=== PATIENT | male | born 1985 | race African-American/Black ===

== ENCOUNTER 2016-09-21 11:55 | Emergency (ER) | payer OTHER ==
--- NOTE | 2016-09-21 13:23 | EDDOCDS ---
Nurse's Notes [facility] Name: Raheem Forrest Age: 30 yrs Sex: Male : 1985 Arrival Date: 09/21/2016 Time: 11:55 Bed PR Private MD: ILJulia BHATIA Diagnosis: Pneumonia, unspecified organism-BILATERAL;Cough Presentation: 09/21 12:05 Presenting complaint: Patient states: cough for 1 week. becoming dizzy with cough. saw [facility] medic on post and was given mucinex. itchy throat and fever flashes. Adult Sepsis Screening: The patient does not have new or worsening altered mentation. Patient's respiratory rate is less than 22. Systolic blood pressure is greater than 100. Patient has a qSOFA score of 0- Negative Sepsis Screen. Suicide/Homicide risk assessment- the patient denies having any suicidal and/or homicidal ideations and does not present with any other emotional, behavioral or mental health complaints. 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 Transition of care: patient was not received from another setting of care. 12:05 Acuity: TORRES Level 4 [facility] 12:05 Method Of Arrival: Walkin/Carried/Asstd [facility] Triage Assessment: 12:09 General: Appears in no apparent distress, Behavior is appropriate for age, cooperative. srm Pain: Pain currently is 10 out of 10 on a pain scale. At worst was 10 out of 10 on a pain scale. HIV screening NA for this visit Offered previously. Historical: - Allergies: Malaria medication (interferes with G6PD deficiency); SULFA (SULFONAMIDES) (interferes with his g6PD deficiency); - Home Meds: 1. Lorazepam Unknown Oral once daily 2. mirazepine daily 3. Mucinex 600 mg oral Ta12 every 12 hours 4. Tylenol Unknown Oral every 4-6 hours prn 5. trazodone 100 mg oral tab 1 tab daily (Last dose: Unknown) 6. valsartan 80 mg oral tab Unknown hasnt started med yet 7. prazosin 5 mg Oral cap 1 cap daily (Last dose: Unknown) 8. escitalopram oxalate 20 mg oral tab 1 tab once daily 9. Abilify 15 mg Oral tab 1 tab once daily 10. Celebrex 100 mg oral cap 1 cap once daily 11. sumatriptan succinate 50 mg oral tab 1 tab takes once per week 12. tamsulosin 0.4 mg oral cp24 1 cap once daily does not take - PMHx: anal fissure; Arthritis; chronic left knee pain; g6pd deficiency; sleep issues; Hypertension; - PSHx: Colonoscopy; - Social history: Smoking status: Patient states was never smoker of tobacco. No barriers to communication noted, The patient speaks fluent Latvian, Speaks appropriately for age. - Family history: Not pertinent. - : The pt / caregiver states he / she is not on anticoagulants. Home medication list is obtained from the patient. - Exposure Risk Screening:: None identified. Screenin:20 Screening information is obtained from the patient. Fall risk: No risks identified. jf3 Assistance ADL's: requires no assistance with activities of daily living. Abuse/DV Screen: The patient / caregiver reports he/she is: not in a situation that causes fear, pain or injury. Nutritional screening: No deficits noted. Advance Directives: Currently, there is no health care proxy. home support is adequate. Assessment: 13:20 General: Appears ill. Pain: Location: throat Pain currently is 10 out of 10 on a pain jf3 scale. Neurological: Level of Consciousness is awake, alert, Oriented to person, place, time. Cardiovascular: Capillary refill < 3 seconds Heart tones S1 S2 present Chest pain is denied. Respiratory: Airway is patent Respiratory effort is even, unlabored, Respiratory pattern is regular, symmetrical, Breath sounds are clear bilaterally. Derm: Skin is normal. Vital Signs: 11:57 BP 147 / 87; Pulse 105; Resp 18; Temp 97.7(O); Pulse Ox 97% on R/A; Weight 103.42 kg ct3 (R); Height 68 in. (172.72 cm) (R); Pain 0/10; 13:18 BP 139 / 97; Pulse 98; Resp 18; Temp 97.7(T); Pulse Ox 99% on R/A; Pain 10/10; jb5 11:57 Body Mass Index 34.67 (103.42 kg, 172.72 cm) ct3 13:18 throat pain jb5 Vitals: 11:57 Log In Time: September 21, 2016 at 11:55. ct3 ED Course: 11:56 Patient visited by Amber Centeno PCA. ct3 11:56 Patient moved to Waiting ct3 11:57 [facility], Julia Esteves is Private Physician. ct3 11:58 Patient moved to Pre RCE ct3 12:06 Triage Initiated srm 12:10 Patient moved to Triage 3 srm 12:27 [facility] dt[facility] 12:27 Tamar Valle MD is Attending Physician. dt4 12:27 Patient visited by Funmilayo Nobles PA-C. dt4 12:41 Patient moved to TR1 jb5 13:06 Patient moved to PR1 / 25 jb5 13:19 Patient visited by Vane Petty PCA. jb5 13:20 [facility] Payment Agreement was scanned into [employer] and attached to record. mm15 13:20 The patient / caregiver is instructed regarding the plan of care and ED course. jf3 13:20 No IV's were initiated during this patient's visit. No procedures done that require jf3 assistance. Order Results: There are currently no results for this order. Outcome: 13:04 Discharge ordered by Provider. dt4 13:22 Discharge Assessment: Patient awake, alert and oriented x 3. No cognitive and/or jf3 functional deficits noted. Patient verbalized understanding of disposition instructions. patient administered narcotics - no. The following High Risk Discharge criteria are identified: None. Discharged to home ambulatory. Condition: stable. Discharge instructions given to patient, Instructed on discharge instructions, follow up and referral plans. medication usage, Demonstrated understanding of instructions, medications, No special radiology studies were completed. Property :Personal belongings accompany Pt. 13:22 Patient left the ED. jf3 Signatures: Mimi Roa, RN RN [facility] Vane Petty PCA [place] [employer] jb5 Amber Centeno PCA [place] ct3 [place] mm15 Funmilayo Nobles PA-C PA-C dt4 Pool Tinajero,MAY RN jf3 Corrections: (The following items were deleted from the chart) 12:22 12:09 Home Meds: Trazodone Oral once daily; srm jf3 MTDD
--- NOTE | 2016-09-21 13:23 | EDDOCDS ---
Physician Documentation [facility] Name: Raheem Forrest Age: 30 yrs Sex: Male : 1985 Arrival Date: 09/21/2016 Time: 11:55 Bed PR Private MD: MDJulia BHATIA Disposition: 09/21/16 13:04 Discharged to Home/Self Care. Impression: Pneumonia, unspecified organism - BILATERAL, Cough. - Condition is Stable. - Discharge Instructions: Pneumonia, Adult, Cough, Adult. - Prescriptions for benzonatate 200 mg Oral Capsule - take 1 capsule by ORAL route 3 times per day As needed; 30 capsule. Levaquin 750 mg Oral Tablet - take 1 tablet by ORAL route once daily for 5 days; 5 tablet. - Medication Reconciliation, Local Pharmacy Hours form. - Follow up: Emergency Department; When: As needed; Reason: Worsening of conditions. Follow up: Private Physician; When: 2 - 3 days; Reason: Wound/Symptom Recheck, Recheck today's complaints, Continuance of care. - Problem is new. - Symptoms are unchanged. Historical: - Allergies: Malaria medication (interferes with G6PD deficiency); SULFA (SULFONAMIDES) (interferes with his g6PD deficiency); - Home Meds: 1. Lorazepam Unknown Oral once daily 2. mirazepine daily 3. Mucinex 600 mg oral Ta12 every 12 hours 4. Tylenol Unknown Oral every 4-6 hours prn 5. trazodone 100 mg oral tab 1 tab daily (Last dose: Unknown) 6. valsartan 80 mg oral tab Unknown hasnt started med yet 7. prazosin 5 mg Oral cap 1 cap daily (Last dose: Unknown) 8. escitalopram oxalate 20 mg oral tab 1 tab once daily 9. Abilify 15 mg Oral tab 1 tab once daily 10. Celebrex 100 mg oral cap 1 cap once daily 11. sumatriptan succinate 50 mg oral tab 1 tab takes once per week 12. tamsulosin 0.4 mg oral cp24 1 cap once daily does not take - PMHx: anal fissure; Arthritis; chronic left knee pain; g6pd deficiency; sleep issues; Hypertension; - PSHx: Colonoscopy; - Social history: Smoking status: Patient states was never smoker of tobacco. No barriers to communication noted, The patient speaks fluent Bhutanese, Speaks appropriately for age. - Family history: Not pertinent. - : The pt / caregiver states he / she is not on anticoagulants. Home medication list is obtained from the patient. - Exposure Risk Screening:: None identified. Vital Signs: 09/21 11:57 BP 147 / 87; Pulse 105; Resp 18; Temp 97.7(O); Pulse Ox 97% on R/A; Weight 103.42 kg / ct3 228 lbs (R); Height 68 in. (172.72 cm) (R); Pain 0/10; 13:18 BP 139 / 97; Pulse 98; Resp 18; Temp 97.7(T); Pulse Ox 99% on R/A; Pain 10/10; jb5 11:57 Body Mass Index 34.67 (103.42 kg, 172.72 cm) ct3 13:18 throat pain jb5 MDM: 12:42 Chest, 2 View (pa\E\lat) Ordered. EDMS 12:54 Financial registration complete. mm15 13:20 [facility] Payment Agreement was scanned into [employer] and attached to record. mm15 Signatures: Dispatcher [employer] EDMS Mimi Roa, RN RN srm [place] mm15 Funmilayo Nobles, PA-C PA-C dt4 Pool Tinajero,RN RN jf3 The chart was reviewed and I authenticate all verbal orders and agree with the evaluation and treatment provided.Corrections: (The following items were deleted from the chart) 12:22 12:09 Home Meds: Trazodone Oral once daily; srm jf3 Attachments: 13:20 [facility] Payment Agreement mm15 MTDD
--- NOTE | 2016-09-21 13:38 | REP ---
Chest x-ray: Two views. History: Cough. Findings: There is an area of infiltrate in the right perihilar region consistent with pneumonia. Some increased markings are suspected in the left perihilar region as well question bilateral infiltrates. Pleural angles are sharp. Cardiomediastinal silhouette is unremarkable. No bony abnormality is seen. Impression: Bilateral perihilar infiltrates right greater than left consistent with pneumonia. Signed by Peter Dorado MD 09/21/2016 01:44 P
--- NOTE | 2016-09-23 14:23 | EDDOCDS ---
Physician Documentation [facility] Name: Raheem Forrest Age: 30 yrs Sex: Male : 1985 Arrival Date: 09/21/2016 Time: 11:55 Bed PR Private MD: MEJulia BHATIA Disposition: 09/21/16 13:04 Discharged to Home/Self Care. Impression: Pneumonia, unspecified organism - BILATERAL, Cough. - Condition is Stable. - Discharge Instructions: Pneumonia, Adult, Cough, Adult. - Prescriptions for benzonatate 200 mg Oral Capsule - take 1 capsule by ORAL route 3 times per day As needed; 30 capsule. Levaquin 750 mg Oral Tablet - take 1 tablet by ORAL route once daily for 5 days; 5 tablet. - Medication Reconciliation, Local Pharmacy Hours form. - Follow up: Emergency Department; When: As needed; Reason: Worsening of conditions. Follow up: Private Physician; When: 2 - 3 days; Reason: Wound/Symptom Recheck, Recheck today's complaints, Continuance of care. - Problem is new. - Symptoms are unchanged. Historical: - Allergies: Malaria medication (interferes with G6PD deficiency); SULFA (SULFONAMIDES) (interferes with his g6PD deficiency); - Home Meds: 1. Lorazepam Unknown Oral once daily 2. mirazepine daily 3. Mucinex 600 mg oral Ta12 every 12 hours 4. Tylenol Unknown Oral every 4-6 hours prn 5. trazodone 100 mg oral tab 1 tab daily (Last dose: Unknown) 6. valsartan 80 mg oral tab Unknown hasnt started med yet 7. prazosin 5 mg Oral cap 1 cap daily (Last dose: Unknown) 8. escitalopram oxalate 20 mg oral tab 1 tab once daily 9. Abilify 15 mg Oral tab 1 tab once daily 10. Celebrex 100 mg oral cap 1 cap once daily 11. sumatriptan succinate 50 mg oral tab 1 tab takes once per week 12. tamsulosin 0.4 mg oral cp24 1 cap once daily does not take - PMHx: anal fissure; Arthritis; chronic left knee pain; g6pd deficiency; sleep issues; Hypertension; - PSHx: Colonoscopy; - Social history: Smoking status: Patient states was never smoker of tobacco. No barriers to communication noted, The patient speaks fluent Albanian, Speaks appropriately for age. - Family history: Not pertinent. - : The pt / caregiver states he / she is not on anticoagulants. Home medication list is obtained from the patient. - Exposure Risk Screening:: None identified. Vital Signs: 09/21 11:57 BP 147 / 87; Pulse 105; Resp 18; Temp 97.7(O); Pulse Ox 97% on R/A; Weight 103.42 kg / ct3 228 lbs (R); Height 68 in. (172.72 cm) (R); Pain 0/10; 13:18 BP 139 / 97; Pulse 98; Resp 18; Temp 97.7(T); Pulse Ox 99% on R/A; Pain 10/10; jb5 11:57 Body Mass Index 34.67 (103.42 kg, 172.72 cm) ct3 13:18 throat pain jb5 MDM: 12:42 Chest, 2 View (pa\E\lat) Ordered. EDMS 12:54 Financial registration complete. mm15 13:20 [facility] Payment Agreement was scanned into [employer] and attached to record. mm15 09/22 10:03 T-Sheet-- Draft Copy was scanned into [employer] and attached to record. gb 10:03 Radiology Report was scanned into [employer] and attached to record. gb Signatures: Dispatcher [employer] EDMS Mimi Roa, RN RN [facility] Rose Farah, Reg Reg [place] mm15 Funmilayo Nobles, PA-C PA-C dt4 Pool Tinajero RN RN jf3 The chart was reviewed and I authenticate all verbal orders and agree with the evaluation and treatment provided.Corrections: (The following items were deleted from the chart) 09/21 12:22 12:09 Home Meds: Trazodone Oral once daily; srm jf3 Attachments: 13:20 [facility] Payment Agreement mm15 09/22 10:03 T-Sheet-- Draft Copy gb Chart Complete MTDD
--- NOTE | 2016-09-23 14:23 | EDDOCDS ---
Physician Documentation [facility] Name: Raheem Forrest Age: 30 yrs Sex: Male : 1985 Arrival Date: 09/21/2016 Time: 11:55 Bed PR Private MD: GAJulia BHATIA Disposition: 09/21/16 13:04 Discharged to Home/Self Care. Impression: Pneumonia, unspecified organism - BILATERAL, Cough. - Condition is Stable. - Discharge Instructions: Pneumonia, Adult, Cough, Adult. - Prescriptions for benzonatate 200 mg Oral Capsule - take 1 capsule by ORAL route 3 times per day As needed; 30 capsule. Levaquin 750 mg Oral Tablet - take 1 tablet by ORAL route once daily for 5 days; 5 tablet. - Medication Reconciliation, Local Pharmacy Hours form. - Follow up: Emergency Department; When: As needed; Reason: Worsening of conditions. Follow up: Private Physician; When: 2 - 3 days; Reason: Wound/Symptom Recheck, Recheck today's complaints, Continuance of care. - Problem is new. - Symptoms are unchanged. Historical: - Allergies: Malaria medication (interferes with G6PD deficiency); SULFA (SULFONAMIDES) (interferes with his g6PD deficiency); - Home Meds: 1. Lorazepam Unknown Oral once daily 2. mirazepine daily 3. Mucinex 600 mg oral Ta12 every 12 hours 4. Tylenol Unknown Oral every 4-6 hours prn 5. trazodone 100 mg oral tab 1 tab daily (Last dose: Unknown) 6. valsartan 80 mg oral tab Unknown hasnt started med yet 7. prazosin 5 mg Oral cap 1 cap daily (Last dose: Unknown) 8. escitalopram oxalate 20 mg oral tab 1 tab once daily 9. Abilify 15 mg Oral tab 1 tab once daily 10. Celebrex 100 mg oral cap 1 cap once daily 11. sumatriptan succinate 50 mg oral tab 1 tab takes once per week 12. tamsulosin 0.4 mg oral cp24 1 cap once daily does not take - PMHx: anal fissure; Arthritis; chronic left knee pain; g6pd deficiency; sleep issues; Hypertension; - PSHx: Colonoscopy; - Social history: Smoking status: Patient states was never smoker of tobacco. No barriers to communication noted, The patient speaks fluent [place], Speaks appropriately for age. - Family history: Not pertinent. - : The pt / caregiver states he / she is not on anticoagulants. Home medication list is obtained from the patient. - Exposure Risk Screening:: None identified. Vital Signs: 09/21 11:57 BP 147 / 87; Pulse 105; Resp 18; Temp 97.7(O); Pulse Ox 97% on R/A; Weight 103.42 kg / ct3 228 lbs (R); Height 68 in. (172.72 cm) (R); Pain 0/10; 13:18 BP 139 / 97; Pulse 98; Resp 18; Temp 97.7(T); Pulse Ox 99% on R/A; Pain 10/10; jb5 11:57 Body Mass Index 34.67 (103.42 kg, 172.72 cm) ct3 13:18 throat pain jb5 MDM: 12:42 Chest, 2 View (pa\E\lat) Ordered. EDMS 12:54 Financial registration complete. mm15 13:20 [facility] Payment Agreement was scanned into [employer] and attached to record. mm15 09/22 10:03 T-Sheet-- Draft Copy was scanned into [employer] and attached to record. gb 10:03 Radiology Report was scanned into [employer] and attached to record. gb Signatures: Dispatcher [employer] EDMS Mimi Roa, RN RN [facility] Rose Farah, Reg Reg [place] mm15 Funmilayo Nobles, PA-C PA-C dt4 Pool Tinajero RN RN jf3 The chart was reviewed and I authenticate all verbal orders and agree with the evaluation and treatment provided.Corrections: (The following items were deleted from the chart) 09/21 12:22 12:09 Home Meds: Trazodone Oral once daily; srm jf3 Attachments: 13:20 [facility] Payment Agreement mm15 09/22 10:03 T-Sheet-- Draft Copy gb Chart Complete MTDD
--- NOTE | 2016-09-23 14:23 | EDDOCDS ---
Nurse's Notes [facility] Name: Raheem Forrest Age: 30 yrs Sex: Male : 1985 Arrival Date: 09/21/2016 Time: 11:55 Bed PR Private MD: GAJulia BHATIA Diagnosis: Pneumonia, unspecified organism-BILATERAL;Cough Presentation: 09/21 12:05 Presenting complaint: Patient states: cough for 1 week. becoming dizzy with cough. saw [facility] medic on post and was given mucinex. itchy throat and fever flashes. Adult Sepsis Screening: The patient does not have new or worsening altered mentation. Patient's respiratory rate is less than 22. Systolic blood pressure is greater than 100. Patient has a qSOFA score of 0- Negative Sepsis Screen. Suicide/Homicide risk assessment- the patient denies having any suicidal and/or homicidal ideations and does not present with any other emotional, behavioral or mental health complaints. 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 Transition of care: patient was not received from another setting of care. 12:05 Acuity: TORRES Level 4 [facility] 12:05 Method Of Arrival: Walkin/Carried/Asstd [facility] Triage Assessment: 12:09 General: Appears in no apparent distress, Behavior is appropriate for age, cooperative. srm Pain: Pain currently is 10 out of 10 on a pain scale. At worst was 10 out of 10 on a pain scale. HIV screening NA for this visit Offered previously. Historical: - Allergies: Malaria medication (interferes with G6PD deficiency); SULFA (SULFONAMIDES) (interferes with his g6PD deficiency); - Home Meds: 1. Lorazepam Unknown Oral once daily 2. mirazepine daily 3. Mucinex 600 mg oral Ta12 every 12 hours 4. Tylenol Unknown Oral every 4-6 hours prn 5. trazodone 100 mg oral tab 1 tab daily (Last dose: Unknown) 6. valsartan 80 mg oral tab Unknown hasnt started med yet 7. prazosin 5 mg Oral cap 1 cap daily (Last dose: Unknown) 8. escitalopram oxalate 20 mg oral tab 1 tab once daily 9. Abilify 15 mg Oral tab 1 tab once daily 10. Celebrex 100 mg oral cap 1 cap once daily 11. sumatriptan succinate 50 mg oral tab 1 tab takes once per week 12. tamsulosin 0.4 mg oral cp24 1 cap once daily does not take - PMHx: anal fissure; Arthritis; chronic left knee pain; g6pd deficiency; sleep issues; Hypertension; - PSHx: Colonoscopy; - Social history: Smoking status: Patient states was never smoker of tobacco. No barriers to communication noted, The patient speaks fluent Korean, Speaks appropriately for age. - Family history: Not pertinent. - : The pt / caregiver states he / she is not on anticoagulants. Home medication list is obtained from the patient. - Exposure Risk Screening:: None identified. Screenin:20 Screening information is obtained from the patient. Fall risk: No risks identified. jf3 Assistance ADL's: requires no assistance with activities of daily living. Abuse/DV Screen: The patient / caregiver reports he/she is: not in a situation that causes fear, pain or injury. Nutritional screening: No deficits noted. Advance Directives: Currently, there is no health care proxy. home support is adequate. Assessment: 13:20 General: Appears ill. Pain: Location: throat Pain currently is 10 out of 10 on a pain jf3 scale. Neurological: Level of Consciousness is awake, alert, Oriented to person, place, time. Cardiovascular: Capillary refill < 3 seconds Heart tones S1 S2 present Chest pain is denied. Respiratory: Airway is patent Respiratory effort is even, unlabored, Respiratory pattern is regular, symmetrical, Breath sounds are clear bilaterally. Derm: Skin is normal. Vital Signs: 11:57 BP 147 / 87; Pulse 105; Resp 18; Temp 97.7(O); Pulse Ox 97% on R/A; Weight 103.42 kg ct3 (R); Height 68 in. (172.72 cm) (R); Pain 0/10; 13:18 BP 139 / 97; Pulse 98; Resp 18; Temp 97.7(T); Pulse Ox 99% on R/A; Pain 10/10; jb5 11:57 Body Mass Index 34.67 (103.42 kg, 172.72 cm) ct3 13:18 throat pain jb5 Vitals: 11:57 Log In Time: September 21, 2016 at 11:55. ct3 ED Course: 11:56 Patient visited by Amber Centeno PCA. ct3 11:56 Patient moved to Waiting ct3 [facility] 11:58 Patient moved to Pre RCE ct3 12:06 Triage Initiated srm 12:10 Patient moved to Triage 3 srm 12:27 Funmilayo Nobles PA-C is PHCP. dt4 12:27 Tamar Valle MD is Attending Physician. dt4 12:27 Patient visited by Funmilayo Nobles PA-C. dt4 12:41 Patient moved to TR1 jb5 13:06 Patient moved to PR1 / 25 jb5 13:19 Patient visited by Vane Petty PCA. jb5 13:20 [facility] Payment Agreement was scanned into [employer] and attached to record. mm15 13:20 The patient / caregiver is instructed regarding the plan of care and ED course. jf3 13:20 No IV's were initiated during this patient's visit. No procedures done that require jf3 assistance. 13:48 Chest, 2 View (pa\E\lat) Returned. EDMS 09/22 10:03 T-Sheet-- Draft Copy was scanned into [employer] and attached to record. gb 10:03 Radiology Report was scanned into [employer] and attached to record. gb Order Results: Radiology Order: Chest, 2 View (pa\E\lat) Test: Chest, 2 View (pa\E\lat) REASON FOR EXAMINATION: Cough; Chest x-ray: Two views.; ; History: Cough.; ; Findings: There is an area of infiltrate in the right perihilar region; consistent with pneumonia. Some increased markings are suspected in the left; perihilar region as well question bilateral infiltrates. Pleural angles are; sharp. Cardiomediastinal silhouette is unremarkable. No bony abnormality is; seen.; ; Impression:; ; Bilateral perihilar infiltrates right greater than left consistent with; pneumonia.; ; ; Signed by; Peter Dorado MD 09/21/2016 01:44 P; Outcome: 09/21 13:04 Discharge ordered by Provider. dt4 13:22 Discharge Assessment: Patient awake, alert and oriented x 3. No cognitive and/or jf3 functional deficits noted. Patient verbalized understanding of disposition instructions. patient administered narcotics - no. The following High Risk Discharge criteria are identified: None. Discharged to home ambulatory. Condition: stable. Discharge instructions given to patient, Instructed on discharge instructions, follow up and referral plans. medication usage, Demonstrated understanding of instructions, medications, No special radiology studies were completed. Property :Personal belongings accompany Pt. 13:22 Patient left the ED. jf3 Signatures: Dispatcher [employer] EDMS Mimi Roa, RN RN [facility] Rose Farah, Reg Reg gb Vane Petty, FILTERING MACHINE TENDER HELPER FILTERING MACHINE TENDER HELPER jb5 Amber Centeno, FILTERING MACHINE TENDER HELPER FILTERING MACHINE TENDER HELPER ct3 [place] mm15 Funmilayo Nobles PA-C [place] dt4 Pool Tinajero RN RN jf3 Corrections: (The following items were deleted from the chart) 12:22 12:09 Home Meds: Trazodone Oral once daily; ananya jf3 Chart Complete MTDD
== END 2016-09-21 13:22 | disposition home or self-care (01) ==
LOC: M ED 11:55
DX: J18.9 Pneumonia, unspecified organism (principal); K60.2 Anal fissure, unspecified; M12.9 Arthropathy, unspecified; M25.562 Pain in left knee; I10 Essential (primary) hypertension; G47.9 Sleep disorder, unspecified; D55.0 Anemia due to glucose-6-phosphate dehydrogenase [G6PD] deficiency; Z79.899 Other long term (current) drug therapy; Z88.8 Allergy status to other drugs, medicaments and biological substances; Z88.2 Allergy status to sulfonamides

== ENCOUNTER 2016-09-24 11:46 | Emergency (ER) | payer OTHER ==
[2016-09-24] MEDS ORDERED: IPRATROPIUM 0.5MG/ALBUTEROL 2.5MG INH SOL UD 3ML (DUONEB)(J7620) As Ordered ONE (13:46)
[2016-09-24] MEDS ORDERED: ONDANSETRON 4 MG ORAL DISINTEGRATING TAB (S0181) As Ordered ONE (13:48)
--- NOTE | 2016-09-24 15:04 | EDDOCDS ---
Nurse's Notes [facility] Name: Raheem Forrest Age: 30 yrs Sex: Male : 1985 Arrival Date: 09/24/2016 Time: 11:46 Bed PD [facility] Diagnosis: Other pneumonia, unspecified organism-Bilateral perihilar infiltrates decreased on Chest x-ray; Improving;Nausea Presentation: 09/24 11:54 Presenting complaint: Patient states: "I was diagnosed with pneumonia on ." ead Reports cough is worsened. c/o upset stomach with antibiotics. Adult Sepsis Screening: The patient does not have new or worsening altered mentation. Patient's respiratory rate is less than 22. Systolic blood pressure is greater than 100. Patient has a qSOFA score of 0- Negative Sepsis Screen. Suicide/Homicide risk assessment- the patient denies having any suicidal and/or homicidal ideations and does not present with any other emotional, behavioral or mental health complaints. 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 Transition of care: patient was not received from another setting of care. 11:54 Acuity: TORRES Level 3 ead 11:54 Method Of Arrival: Walkin/Carried/Asstd ead Triage Assessment: 11:58 General: Appears in no apparent distress, uncomfortable, Behavior is appropriate for ead age, cooperative. Pain: Location: face and back Pain currently is 10 out of 10 on a pain scale. HIV screening NA for this visit Offered previously. Neurological: No deficits noted. Cardiovascular: Chest pain is denied. Respiratory: Airway is patent Respiratory effort is even, unlabored, Reports cough that is productive. Derm: Skin is dry, Skin is normal. Historical: - Allergies: Malaria medication (interferes with G6PD deficiency); SULFA (SULFONAMIDES) (interferes with his g6PD deficiency); - Home Meds: 1. levofloxacin 750 mg Oral tab once daily (Last dose: 09/24/2016) 2. benzonatate 100 mg oral cap 2 caps 3 times per day (Last dose: 09/24/2016) 3. Abilify 15 mg Oral tab 1 tab once daily 4. Celebrex 100 mg Oral cap 1 cap once daily 5. escitalopram oxalate 20 mg oral tab 1 tab once daily 6. Lorazepam Oral once daily 7. mirazepine daily 8. Mucinex 600 mg oral Ta12 every 12 hours 9. prazosin 5 mg Oral cap 1 cap daily 10. sumatriptan succinate 50 mg oral tab 1 tab takes once per week 11. tamsulosin 0.4 mg oral cp24 1 cap once daily does not take 12. trazodone 100 mg Oral tab 1 tab daily 13. valsartan 80 mg oral tab Unknown hasnt started med yet 14. Tylenol Oral every 4-6 hours prn - PMHx: anal fissure; sleep issues; g6pd deficiency; Hypertension; chronic left knee pain; Arthritis; - PSHx: Colonoscopy; - Social history: Smoking status: Patient states was never smoker of tobacco. No barriers to communication noted, The patient speaks fluent Uzbek, Speaks appropriately for age. - Family history: Not pertinent. - : The pt / caregiver states he / she is not on anticoagulants. Home medication list is obtained from the patient, [employer] import data, pill bottles. - Exposure Risk Screening:: None identified. Screenin:57 Screening information is obtained from the patient. Fall risk: No risks identified. ms18 Assistance ADL's: requires no assistance with activities of daily living. Abuse/DV Screen: The patient / caregiver reports he/she is: not in a situation that causes fear, pain or injury. Nutritional screening: No deficits noted. Advance Directives: There is no living will. home support is adequate. Assessment: 14:57 General: Appears in no apparent distress, comfortable, Behavior is appropriate for age, ms18 cooperative, pleasant. Neurological: Level of Consciousness is awake, alert, obeys commands, Oriented to person, place, time. Cardiovascular: Chest pain is denied. Respiratory: Airway is patent Respiratory effort is even, unlabored. GI: Abdomen is non- distended Reports nausea. Derm: Skin is normal. Vital Signs: 11:48 BP 149 / 78; Pulse 104; Resp 18 S; Temp 98.3(O); Pulse Ox 98% on R/A; Weight 100.24 kg dd6 (R); Height 68 in. (172.72 cm) (R); 14:46 BP 134 / 87 LA Sitting (auto/lg); Pulse 134; Resp 24; Temp 97.6; Pulse Ox 95% on R/A; ar3 Pain 4/10; 11:48 Body Mass Index 33.60 (100.24 kg, 172.72 cm) dd6 Vitals: 11:48 Log In Time: September 24, 2016 at 11:46. dd6 ED Course: 11:47 Patient visited by Arnoldo Crook PCA. dd6 11:47 Patient moved to Waiting dd6 11:48 [facility] is Private Physician. dd6 11:48 Patient moved to Pre RCE dd6 11:56 Triage Initiated ead 12:30 Patient moved to Triage 2 ar3 13:34 Sadia Culp PA-C is PHCP. ef1 13:34 Lina Luo MD is Attending Physician. ef1 13:34 Patient visited by Sadia Cupl PA-C. ef1 13:42 Patient moved to PD ar3 13:50 [facility] Payment Agreement was scanned into [employer] and attached to record. lg 14:08 Patient visited by Sadia Culp PA-C. ef1 14:35 Patient visited by Sadia Culp PA-C. ef1 14:37 [facility] is Referral Physician. ef1 14:47 Patient visited by Lianne Driscoll PCA. ar3 14:57 The patient / caregiver is instructed regarding the plan of care and ED course. Patient ms18 has correct armband on for positive identification. Property sent home with patient. :Personal belongings accompany Pt. 14:57 No IV's were initiated during this patient's visit. No procedures done that require ms18 assistance. Administered Medications: 13:47 Drug: Albuterol-Ipratropium 1 neb [ipratropium-albuterol 0.5 mg-3 mg(2.5 mg base)/3 mL cs15 nebulization soln (1 neb)] Route: Nebulizer; 13:51 Drug: Ondansetron ODT 4 mg [ondansetron 4 mg disintegrating tablet (1 tabs)] Route: PO; ms18 14:05 Drug: Albuterol-Ipratropium 1 neb [ipratropium-albuterol 0.5 mg-3 mg(2.5 mg base)/3 mL cs15 nebulization soln (1 neb)] Route: Nebulizer; 14:27 Drug: Albuterol-Ipratropium 1 neb [ipratropium-albuterol 0.5 mg-3 mg(2.5 mg base)/3 mL cs15 nebulization soln (1 neb)] Route: Nebulizer; RT: 13:50 Initial Med Neb Given as ordered. Respiratory: Respiratory effort is unlabored, cs15 Respiratory pattern is regular Breath sounds are diminished bilaterally. 14:13 Respiratory: Reports cough that is productive hacking persistent. cs15 14:35 Respiratory: Reports that his breathing is easier post txs. cs15 Order Results: There are currently no results for this order. Outcome: 14:37 Discharge ordered by Provider. ef1 14:57 Discharge Assessment: Patient awake, alert and oriented x 3. No cognitive and/or ms18 functional deficits noted. Patient verbalized understanding of disposition instructions. patient administered narcotics - no. The following High Risk Discharge criteria are identified: None. Discharged to home ambulatory. Condition: good Condition: stable Condition: improved. Discharge instructions given to patient, Instructed on discharge instructions, follow up and referral plans. medication usage, Demonstrated understanding of instructions, medications, Pt was receptive of discharge instructions/ teaching. Prescriptions given X 1. No special radiology studies were completed. 15:03 Patient left the ED. ms18 Signatures: Krista Medina, Reg Reg lg Arnoldo Crook, EMBEDDED SOFTWARE DEVELOPMENT ENGINEER EMBEDDED SOFTWARE DEVELOPMENT ENGINEER dd6 Sadia Culp, PAJeevanC PA-C ef1 Lianne Driscoll, EMBEDDED SOFTWARE DEVELOPMENT ENGINEER EMBEDDED SOFTWARE DEVELOPMENT ENGINEER ar3 Doris Mcmanus,Jessi Alegre RN, RN RN ms18 Damon Dorsey,RT RT cs15 MTDD
--- NOTE | 2016-09-24 15:04 | EDDOCDS ---
Physician Documentation [facility] Name: Raheem Forrest Age: 30 yrs Sex: Male : 1985 Arrival Date: 09/24/2016 Time: 11:46 Bed PD [facility] Disposition: 09/24/16 14:37 Discharged to Home/Self Care. Impression: Other pneumonia, unspecified organism - Bilateral perihilar infiltrates decreased on Chest x-ray; Improving, Nausea. - Condition is Stable. - Discharge Instructions: Nausea, Adult, Pneumonia, Adult, [id number]. - Prescriptions for promethazine 25 mg Oral Tablet - take 1 tablet by ORAL route every 6 hours As needed; 12 tablet. - Medication Reconciliation, Local Pharmacy Hours form. - Follow up: Julia Esteves [facility]; When: 1 - 2 days; Reason: Recheck today's complaints, Continuance of care. Follow up: Emergency Department; Reason: Worsening of conditions. - Problem is new. - Symptoms have improved. Historical: - Allergies: Malaria medication (interferes with G6PD deficiency); SULFA (SULFONAMIDES) (interferes with his g6PD deficiency); - Home Meds: 1. levofloxacin 750 mg Oral tab once daily (Last dose: 09/24/2016) 2. benzonatate 100 mg oral cap 2 caps 3 times per day (Last dose: 09/24/2016) 3. Abilify 15 mg Oral tab 1 tab once daily 4. Celebrex 100 mg Oral cap 1 cap once daily 5. escitalopram oxalate 20 mg oral tab 1 tab once daily 6. Lorazepam Oral once daily 7. mirazepine daily 8. Mucinex 600 mg oral Ta12 every 12 hours 9. prazosin 5 mg Oral cap 1 cap daily 10. sumatriptan succinate 50 mg oral tab 1 tab takes once per week 11. tamsulosin 0.4 mg oral cp24 1 cap once daily does not take 12. trazodone 100 mg Oral tab 1 tab daily 13. valsartan 80 mg oral tab Unknown hasnt started med yet 14. Tylenol Oral every 4-6 hours prn - PMHx: anal fissure; sleep issues; g6pd deficiency; Hypertension; chronic left knee pain; Arthritis; - PSHx: Colonoscopy; - Social history: Smoking status: Patient states was never smoker of tobacco. No barriers to communication noted, The patient speaks fluent Japanese, Speaks appropriately for age. - Family history: Not pertinent. - : The pt / caregiver states he / she is not on anticoagulants. Home medication list is obtained from the patient, [employer] import data, pill bottles. - Exposure Risk Screening:: None identified. Vital Signs: 09/24 11:48 BP 149 / 78; Pulse 104; Resp 18 S; Temp 98.3(O); Pulse Ox 98% on R/A; Weight 100.24 kg dd6 / 220.99 lbs (R); Height 68 in. (172.72 cm) (R); 14:46 BP 134 / 87 LA Sitting (auto/lg); Pulse 134; Resp 24; Temp 97.6; Pulse Ox 95% on R/A; ar3 Pain 4/10; 11:48 Body Mass Index 33.60 (100.24 kg, 172.72 cm) dd6 MDM: 13:40 Albuterol-Ipratropium 1 neb Nebulizer every 20 minutes x3 ordered. ef1 13:40 Call Respiratory ordered. ef1 13:40 Ondansetron ODT Oral Disintegrating Tablet 4 mg PO once ordered. ef1 13:42 Call Respiratory complete. ar3 13:42 Chest, 2 View (pa\E\lat) Ordered. EDMS 13:43 Financial registration complete. lg 13:50 [facility] Payment Agreement was scanned into [employer] and attached to record. lg Administered Medications: 13:47 Drug: Albuterol-Ipratropium 1 neb [ipratropium-albuterol 0.5 mg-3 mg(2.5 mg base)/3 mL cs15 nebulization soln (1 neb)] Route: Nebulizer; 13:51 Drug: Ondansetron ODT 4 mg [ondansetron 4 mg disintegrating tablet (1 tabs)] Route: PO; ms18 14:05 Drug: Albuterol-Ipratropium 1 neb [ipratropium-albuterol 0.5 mg-3 mg(2.5 mg base)/3 mL cs15 nebulization soln (1 neb)] Route: Nebulizer; 14:27 Drug: Albuterol-Ipratropium 1 neb [ipratropium-albuterol 0.5 mg-3 mg(2.5 mg base)/3 mL cs15 nebulization soln (1 neb)] Route: Nebulizer; Signatures: Dispatcher [employer] EDMS Krista Medina, Reg Reg lg Sadia Culp, PANimco PA-C ef1 Lianne Driscoll, GUN NUMBER GUN NUMBER ar3 Doris Mcmanus,RN RN Jessi Mejia RN RN ms18 Damon Dorsey RT cs15 The chart was reviewed and I authenticate all verbal orders and agree with the evaluation and treatment provided.Attachments: 13:50 [facility] Payment Agreement lg MTDD
--- NOTE | 2016-09-24 15:15 | REP ---
CHEST, TWO VIEWS: HISTORY: Cough. COMPARISON: 09/21/2016. There has been a decrease in the bilateral perihilar infiltrates compared to the previous study. The heart is normal in size. The pulmonary vasculature is normal in appearance. The bony structure is intact. IMPRESSION: There has been a decrease in the bilateral perihilar infiltrates, compared to the previous study. Signed by Larry Bethea MD 09/24/2016 03:15 P
--- NOTE | 2016-09-26 16:04 | EDDOCDS ---
Physician Documentation [facility] Name: Raheem Forrest Age: 30 yrs Sex: Male : 1985 Arrival Date: 09/24/2016 Time: 11:46 Bed PD [facility]: 09/24/16 14:37 Discharged to Home/Self Care. Impression: Other pneumonia, unspecified organism - Bilateral perihilar infiltrates decreased on Chest x-ray; Improving, Nausea. - Condition is Stable. - Discharge Instructions: Nausea, Adult, Pneumonia, Adult, [id number]. - Prescriptions for promethazine 25 mg Oral Tablet - take 1 tablet by ORAL route every 6 hours As needed; 12 tablet. - Medication Reconciliation, Local Pharmacy Hours form. - Follow up: Julia Esteves [facility]; When: 1 - 2 days; Reason: Recheck today's complaints, Continuance of care. Follow up: Emergency Department; Reason: Worsening of conditions. - Problem is new. - Symptoms have improved. Historical: - Allergies: Malaria medication (interferes with G6PD deficiency); SULFA (SULFONAMIDES) (interferes with his g6PD deficiency); - Home Meds: 1. levofloxacin 750 mg Oral tab once daily (Last dose: 09/24/2016) 2. benzonatate 100 mg oral cap 2 caps 3 times per day (Last dose: 09/24/2016) 3. Abilify 15 mg Oral tab 1 tab once daily 4. Celebrex 100 mg Oral cap 1 cap once daily 5. escitalopram oxalate 20 mg oral tab 1 tab once daily 6. Lorazepam Oral once daily 7. mirazepine daily 8. Mucinex 600 mg oral Ta12 every 12 hours 9. prazosin 5 mg Oral cap 1 cap daily 10. sumatriptan succinate 50 mg oral tab 1 tab takes once per week 11. tamsulosin 0.4 mg oral cp24 1 cap once daily does not take 12. trazodone 100 mg Oral tab 1 tab daily 13. valsartan 80 mg oral tab Unknown hasnt started med yet 14. Tylenol Oral every 4-6 hours prn - PMHx: anal fissure; sleep issues; g6pd deficiency; Hypertension; chronic left knee pain; Arthritis; - PSHx: Colonoscopy; - Social history: Smoking status: Patient states was never smoker of tobacco. No barriers to communication noted, The patient speaks fluent Setswana, Speaks appropriately for age. - Family history: Not pertinent. - : The pt / caregiver states he / she is not on anticoagulants. Home medication list is obtained from the patient, [employer] import data, pill bottles. - Exposure Risk Screening:: None identified. Vital Signs: 09/24 11:48 BP 149 / 78; Pulse 104; Resp 18 S; Temp 98.3(O); Pulse Ox 98% on R/A; Weight 100.24 kg dd6 / 220.99 lbs (R); Height 68 in. (172.72 cm) (R); 14:46 BP 134 / 87 LA Sitting (auto/lg); Pulse 134; Resp 24; Temp 97.6; Pulse Ox 95% on R/A; ar3 Pain 4/10; 11:48 Body Mass Index 33.60 (100.24 kg, 172.72 cm) dd6 MDM: 13:40 Albuterol-Ipratropium 1 neb Nebulizer every 20 minutes x3 ordered. ef1 13:40 Call Respiratory ordered. ef1 13:40 Ondansetron ODT Oral Disintegrating Tablet 4 mg PO once ordered. ef1 13:42 Call Respiratory complete. ar3 13:42 Chest, 2 View (pa\E\lat) Ordered. EDMS 13:43 Financial registration complete. lg 13:50 [facility] Payment Agreement was scanned into [employer] and attached to record. lg 09/25 11:15 T-Sheet-- Draft Copy was scanned into [employer] and attached to record. gb Administered Medications: 09/24 13:47 Drug: Albuterol-Ipratropium 1 neb [ipratropium-albuterol 0.5 mg-3 mg(2.5 mg base)/3 mL cs15 nebulization soln (1 neb)] Route: Nebulizer; 13:51 Drug: Ondansetron ODT 4 mg [ondansetron 4 mg disintegrating tablet (1 tabs)] Route: PO; ms18 14:05 Drug: Albuterol-Ipratropium 1 neb [ipratropium-albuterol 0.5 mg-3 mg(2.5 mg base)/3 mL cs15 nebulization soln (1 neb)] Route: Nebulizer; 14:27 Drug: Albuterol-Ipratropium 1 neb [ipratropium-albuterol 0.5 mg-3 mg(2.5 mg base)/3 mL cs15 nebulization soln (1 neb)] Route: Nebulizer; Signatures: Dispatcher [employer] EDMS Sofi Rose, Reg Reg gb Krista Medina, Reg Reg lg Sadia Culp, PA-C PA-C ef1 Lianne Driscoll, BARREL RIBS SOLDERER BARREL RIBS SOLDERER ar3 Doris Mcmanus RN RN ead Smith, Mallory, RN RN ms18 Damon Dorsey RT cs15 The chart was reviewed and I authenticate all verbal orders and agree with the evaluation and treatment provided.Attachments: 13:50 [facility] Payment Agreement lg 09/25 11:15 T-Sheet-- Draft Copy gb Chart Complete MTDD
--- NOTE | 2016-09-26 16:04 | EDDOCDS ---
Physician Documentation [facility] Name: Raheem Forrest Age: 30 yrs Sex: Male : 1985 Arrival Date: 09/24/2016 Time: 11:46 Bed PD [facility]: 09/24/16 14:37 Discharged to Home/Self Care. Impression: Other pneumonia, unspecified organism - Bilateral perihilar infiltrates decreased on Chest x-ray; Improving, Nausea. - Condition is Stable. - Discharge Instructions: Nausea, Adult, Pneumonia, Adult, [id number]. - Prescriptions for promethazine 25 mg Oral Tablet - take 1 tablet by ORAL route every 6 hours As needed; 12 tablet. - Medication Reconciliation, Local Pharmacy Hours form. - Follow up: Julia Esteves [facility]; When: 1 - 2 days; Reason: Recheck today's complaints, Continuance of care. Follow up: Emergency Department; Reason: Worsening of conditions. - Problem is new. - Symptoms have improved. Historical: - Allergies: Malaria medication (interferes with G6PD deficiency); SULFA (SULFONAMIDES) (interferes with his g6PD deficiency); - Home Meds: 1. levofloxacin 750 mg Oral tab once daily (Last dose: 09/24/2016) 2. benzonatate 100 mg oral cap 2 caps 3 times per day (Last dose: 09/24/2016) 3. Abilify 15 mg Oral tab 1 tab once daily 4. Celebrex 100 mg Oral cap 1 cap once daily 5. escitalopram oxalate 20 mg oral tab 1 tab once daily 6. Lorazepam Oral once daily 7. mirazepine daily 8. Mucinex 600 mg oral Ta12 every 12 hours 9. prazosin 5 mg Oral cap 1 cap daily 10. sumatriptan succinate 50 mg oral tab 1 tab takes once per week 11. tamsulosin 0.4 mg oral cp24 1 cap once daily does not take 12. trazodone 100 mg Oral tab 1 tab daily 13. valsartan 80 mg oral tab Unknown hasnt started med yet 14. Tylenol Oral every 4-6 hours prn - PMHx: anal fissure; sleep issues; g6pd deficiency; Hypertension; chronic left knee pain; Arthritis; - PSHx: Colonoscopy; - Social history: Smoking status: Patient states was never smoker of tobacco. No barriers to communication noted, The patient speaks fluent Bengali, Speaks appropriately for age. - Family history: Not pertinent. - : The pt / caregiver states he / she is not on anticoagulants. Home medication list is obtained from the patient, [email or web address] import data, pill bottles. - Exposure Risk Screening:: None identified. Vital Signs: 09/24 11:48 BP 149 / 78; Pulse 104; Resp 18 S; Temp 98.3(O); Pulse Ox 98% on R/A; Weight 100.24 kg dd6 / 220.99 lbs (R); Height 68 in. (172.72 cm) (R); 14:46 BP 134 / 87 LA Sitting (auto/lg); Pulse 134; Resp 24; Temp 97.6; Pulse Ox 95% on R/A; ar3 Pain 4/10; 11:48 Body Mass Index 33.60 (100.24 kg, 172.72 cm) dd6 MDM: 13:40 Albuterol-Ipratropium 1 neb Nebulizer every 20 minutes x3 ordered. ef1 13:40 Call Respiratory ordered. ef1 13:40 Ondansetron ODT Oral Disintegrating Tablet 4 mg PO once ordered. ef1 13:42 Call Respiratory complete. ar3 13:42 Chest, 2 View (pa\E\lat) Ordered. EDMS 13:43 Financial registration complete. lg 13:50 [facility] Payment Agreement was scanned into [employer] and attached to record. lg 09/25 11:15 T-Sheet-- Draft Copy was scanned into [employer] and attached to record. gb Administered Medications: 09/24 13:47 Drug: Albuterol-Ipratropium 1 neb [ipratropium-albuterol 0.5 mg-3 mg(2.5 mg base)/3 mL cs15 nebulization soln (1 neb)] Route: Nebulizer; 13:51 Drug: Ondansetron ODT 4 mg [ondansetron 4 mg disintegrating tablet (1 tabs)] Route: PO; ms18 14:05 Drug: Albuterol-Ipratropium 1 neb [ipratropium-albuterol 0.5 mg-3 mg(2.5 mg base)/3 mL cs15 nebulization soln (1 neb)] Route: Nebulizer; 14:27 Drug: Albuterol-Ipratropium 1 neb [ipratropium-albuterol 0.5 mg-3 mg(2.5 mg base)/3 mL cs15 nebulization soln (1 neb)] Route: Nebulizer; Signatures: Dispatcher [employer] EDMS Sofi Rose, Reg Reg gb Krista Medina, Reg Reg lg Sadia Culp, PA-C PA-C ef1 Lianne Driscoll, CEMENT TRUCK LOADER CEMENT TRUCK LOADER ar3 Doris Mcmanus RN RN ead Smith, Mallory, RN RN ms18 Damon Dorsey RT cs15 The chart was reviewed and I authenticate all verbal orders and agree with the evaluation and treatment provided.Attachments: 13:[address] [facility] Payment Agreement lg 09/25 11:15 T-Sheet-- Draft Copy gb Chart Complete MTDD
--- NOTE | 2016-09-26 16:04 | EDDOCDS ---
Nurse's Notes [facility] Name: Raheem Forrest Age: 30 yrs Sex: Male : 1985 Arrival Date: 09/24/2016 Time: 11:46 Bed PD Private [facility] Diagnosis: Other pneumonia, unspecified organism-Bilateral perihilar infiltrates decreased on Chest x-ray; Improving;Nausea Presentation: 09/24 11:54 Presenting complaint: Patient states: "I was diagnosed with pneumonia on ." ead Reports cough is worsened. c/o upset stomach with antibiotics. Adult Sepsis Screening: The patient does not have new or worsening altered mentation. Patient's respiratory rate is less than 22. Systolic blood pressure is greater than 100. Patient has a qSOFA score of 0- Negative Sepsis Screen. Suicide/Homicide risk assessment- the patient denies having any suicidal and/or homicidal ideations and does not present with any other emotional, behavioral or mental health complaints. 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 Transition of care: patient was not received from another setting of care. 11:54 Acuity: TORRES Level 3 ead 11:54 Method Of Arrival: Walkin/Carried/Asstd ead Triage Assessment: 11:58 General: Appears in no apparent distress, uncomfortable, Behavior is appropriate for ead age, cooperative. Pain: Location: face and back Pain currently is 10 out of 10 on a pain scale. HIV screening NA for this visit Offered previously. Neurological: No deficits noted. Cardiovascular: Chest pain is denied. Respiratory: Airway is patent Respiratory effort is even, unlabored, Reports cough that is productive. Derm: Skin is dry, Skin is normal. Historical: - Allergies: Malaria medication (interferes with G6PD deficiency); SULFA (SULFONAMIDES) (interferes with his g6PD deficiency); - Home Meds: 1. levofloxacin 750 mg Oral tab once daily (Last dose: 09/24/2016) 2. benzonatate 100 mg oral cap 2 caps 3 times per day (Last dose: 09/24/2016) 3. Abilify 15 mg Oral tab 1 tab once daily 4. Celebrex 100 mg Oral cap 1 cap once daily 5. escitalopram oxalate 20 mg oral tab 1 tab once daily 6. Lorazepam Oral once daily 7. mirazepine daily 8. Mucinex 600 mg oral Ta12 every 12 hours 9. prazosin 5 mg Oral cap 1 cap daily 10. sumatriptan succinate 50 mg oral tab 1 tab takes once per week 11. tamsulosin 0.4 mg oral cp24 1 cap once daily does not take 12. trazodone 100 mg Oral tab 1 tab daily 13. valsartan 80 mg oral tab Unknown hasnt started med yet 14. Tylenol Oral every 4-6 hours prn - PMHx: anal fissure; sleep issues; g6pd deficiency; Hypertension; chronic left knee pain; Arthritis; - PSHx: Colonoscopy; - Social history: Smoking status: Patient states was never smoker of tobacco. No barriers to communication noted, The patient speaks fluent Tu[place], Speaks appropriately for age. - Family history: Not pertinent. - : The pt / caregiver states he / she is not on anticoagulants. Home medication list is obtained from the patient, [facility], pill bottles. - Exposure Risk Screening:: None identified. Screenin:57 Screening information is obtained from the patient. Fall risk: No risks identified. ms18 Assistance ADL's: requires no assistance with activities of daily living. Abuse/DV Screen: The patient / caregiver reports he/she is: not in a situation that causes fear, pain or injury. Nutritional screening: No deficits noted. Advance Directives: There is no living will. home support is adequate. Assessment: 14:57 General: Appears in no apparent distress, comfortable, Behavior is appropriate for age, ms18 cooperative, pleasant. Neurological: Level of Consciousness is awake, alert, obeys commands, Oriented to person, place, time. Cardiovascular: Chest pain is denied. Respiratory: Airway is patent Respiratory effort is even, unlabored. GI: Abdomen is non- distended Reports nausea. Derm: Skin is normal. Vital Signs: 11:48 BP 149 / 78; Pulse 104; Resp 18 S; Temp 98.3(O); Pulse Ox 98% on R/A; Weight 100.24 kg dd6 (R); Height 68 in. (172.72 cm) (R); 14:46 BP 134 / 87 LA Sitting (auto/lg); Pulse 134; Resp 24; Temp 97.6; Pulse Ox 95% on R/A; ar3 Pain 4/10; 11:48 Body Mass Index 33.60 (100.24 kg, 172.72 cm) dd6 Vitals: 11:48 Log In Time: September 24, 2016 at 11:46. dd6 ED Course: 11:47 Patient visited by Arnoldo Crook PCA. dd6 11:47 Patient moved to Waiting dd6 11:48 [facility] is Private Physician. dd6 11:48 Patient moved to Pre RCE dd6 11:56 Triage Initiated ead 12:30 Patient moved to Triage 2 ar3 13:34 Sadia Culp PA-C is PHCP. ef1 13:34 Lina Luo MD is Attending Physician. ef1 13:34 Patient visited by Sadia Culp PA-C. ef1 13:42 Patient moved to PD ar3 13:50 [facility] Payment Agreement was scanned into [employer] and attached to record. lg 14:08 Patient visited by Sadia Culp PA-C. ef1 14:35 Patient visited by Sadia Culp PA-C. ef1 14:37 [facility] is Referral Physician. ef1 14:47 Patient visited by Lianne Driscoll PCA. ar3 14:57 The patient / caregiver is instructed regarding the plan of care and ED course. Patient ms18 has correct armband on for positive identification. Property sent home with patient. :Personal belongings accompany Pt. 14:57 No IV's were initiated during this patient's visit. No procedures done that require ms18 assistance. 15:55 Chest, 2 View (pa\\E\\lat) Returned. EDMS 09/25 11:15 T-Sheet-- Draft Copy was scanned into [employer] and attached to record. gb Administered Medications: 09/24 13:47 Drug: Albuterol-Ipratropium 1 neb [ipratropium-albuterol 0.5 mg-3 mg(2.5 mg base)/3 mL cs15 nebulization soln (1 neb)] Route: Nebulizer; 13:51 Drug: Ondansetron ODT 4 mg [ondansetron 4 mg disintegrating tablet (1 tabs)] Route: PO; ms18 14:05 Drug: Albuterol-Ipratropium 1 neb [ipratropium-albuterol 0.5 mg-3 mg(2.5 mg base)/3 mL cs15 nebulization soln (1 neb)] Route: Nebulizer; 14:27 Drug: Albuterol-Ipratropium 1 neb [ipratropium-albuterol 0.5 mg-3 mg(2.5 mg base)/3 mL cs15 nebulization soln (1 neb)] Route: Nebulizer; RT: 13:50 Initial Med Neb Given as ordered. Respiratory: Respiratory effort is unlabored, cs15 Respiratory pattern is regular Breath sounds are diminished bilaterally. 14:13 Respiratory: Reports cough that is productive hacking persistent. cs15 14:35 Respiratory: Reports that his breathing is easier post txs. cs15 Order Results: Radiology Order: Chest, 2 View (pa\\E\\lat) Test: Chest, 2 View (pa\\E\\lat) REASON FOR EXAMINATION: Cough; CHEST, TWO VIEWS:; ; HISTORY: Cough.; ; COMPARISON: 09/21/2016.; ; There has been a decrease in the bilateral perihilar infiltrates compared to the; previous study. The heart is normal in size. The pulmonary vasculature is normal; in appearance. The bony structure is intact.; ; IMPRESSION:; ; There has been a decrease in the bilateral perihilar infiltrates, compared to the; previous study.; ; ; Signed by; Larry Bethea MD 09/24/2016 03:15 P; Outcome: 14:37 Discharge ordered by Provider. ef1 14:57 Discharge Assessment: Patient awake, alert and oriented x 3. No cognitive and/or ms18 functional deficits noted. Patient verbalized understanding of disposition instructions. patient administered narcotics - no. The following High Risk Discharge criteria are identified: None. Discharged to home ambulatory. Condition: good Condition: stable Condition: improved. Discharge instructions given to patient, Instructed on discharge instructions, follow up and referral plans. medication usage, Demonstrated understanding of instructions, medications, Pt was receptive of discharge instructions/ teaching. Prescriptions given X 1. No special radiology studies were completed. 15:03 Patient left the ED. ms18 Signatures: Dispatcher [employer] EDMS Rose Farah, Reg Reg gb Krista Medina, Reg Reg lg Arnoldo Crook, CASH SALES AUDIT CLERK CASH SALES AUDIT CLERK dd6 Sadia Culp, PA-C PA-C ef1 Lianne Driscoll, CASH SALES AUDIT CLERK CASH SALES AUDIT CLERK ar3 Doris Mcmanus,RN RN ead Jessi Yang,RN RN ms18 Damon Dorsey,RT RT cs15 Chart Complete MTDD
== END 2016-09-24 15:03 | disposition home or self-care (01) ==
LOC: M ED 11:46
DX: J18.9 Pneumonia, unspecified organism (principal); R11.0 Nausea; R05 Cough; I10 Essential (primary) hypertension; M25.562 Pain in left knee; M19.90 Unspecified osteoarthritis, unspecified site; D55.0 Anemia due to glucose-6-phosphate dehydrogenase [G6PD] deficiency; F51.9 Sleep disorder not due to a substance or known physiological condition, unspecified; Z79.899 Other long term (current) drug therapy; Z88.2 Allergy status to sulfonamides; Z88.8 Allergy status to other drugs, medicaments and biological substances

== ENCOUNTER → 2016-10-30 | Outpatient (REF) ==
--- NOTE | 2016-10-30 09:23 | REP ---
Clinical: Pain and disability. Technique: AP, lateral, bilateral oblique and sunrise views of the right and left knee. Findings: The right knee demonstrates only minimal sclerosis to the tibial plateau and mild medial joint space narrowing. No acute fracture or dislocation. No obvious effusion. The left knee demonstrates moderate tricompartmental osteoarthritic degenerative changes including osteophytes involving the distal femur, proximal tibia and patella as well as medial and patellofemoral joint space narrowing. No acute fracture or dislocation. No obvious effusion. Impression: Moderate tricompartmental degenerative changes to the left knee. Mild age-related changes to the right knee. Signed by Jacob Mascorro MD 10/30/2016 09:15 A
--- NOTE | 2016-10-30 09:31 | REP ---
TWO VIEWS OF THE CHEST: This study is compared to that of 09/24/2016. The cardiomediastinal structures, lungs, diaphragms and bony thorax are normal. The perihilar findings previously reported are no longer discernible. IMPRESSION: Normal chest. Unreviewed
--- NOTE | 2016-10-30 09:35 | REP ---
Clinical: Pain. Technique: Masters, Velazquez, lateral, and SMV views. Findings: The sinuses are well aerated and clear without mucosal thickening, fluid levels, or radiodense foreign body. The visualized and surrounding osseous structures are relatively symmetric, intact, and normal. Impression: Normal sinus radiograph series. No obvious mucosal thickening or fluid levels identified. Signed by Jacob Mascorro MD 10/30/2016 09:27 A
== END ==
LOC: M SMT 08:32
PROVIDERS: ATTEND Internal Medicine
DX: Z02.1 Encounter for pre-employment examination (principal)

== ENCOUNTER → 2017-05-03 | Outpatient (CLI) | payer OTHER ==
--- NOTE | 2017-05-07 20:44 | SLEEPCENT ---
DATE OF PROCEDURE: 05/03/2017 REFERRING PHYSICIAN: Gisselle Burnett Nocturnal polysomnography was performed for assessment of sleep physiology in this patient with complaints of excessive somnolence and impaired cognition. 9 hours and 2 minutes of data were reviewed. There were 432 minutes of sleep identified. Sleep latency was prolonged at 74 minutes. Rapid eye movement (REM) latency was prolonged at 128 minutes. Sleep architecture showed fragmentation. Progression was maintained. There were three to four REM periods appreciated. Overall sleep efficiency was 80.3%. The patient's EKG shows a sinus rhythm with an average heart rate of 74 beats per minute. Rate variability was seen surrounding respiratory events. Rate ranged 55 to 100. EEG shows reasonably normal waveforms for awake and sleep. There were 351 respiratory events identified of 10 seconds in duration or greater for an apnea-hypopnea index of 48.8. The events were primarily obstructive, not exclusive to sleep stage nor body posture, associated with arousal 14.3 times per hour and oxygen desaturations to 83%. Remaining measures of sleep physiology were normal. IMPRESSION: Severe obstructive sleep apnea syndrome (G47.33). Apnea/hypopnea index 48.8. RECOMMENDATION: The patient should be encouraged to return to the sleep disorder center at his earliest convenience for pressure therapy. In the interim, alcohol and sedative avoidance should be practiced and caution exercised during the operation of motor vehicles.
== END ==
LOC: M SLEEP 19:16
PROVIDERS: ATTEND Nurse Practitioner Adult Health
DX: G47.33 Obstructive sleep apnea (adult) (pediatric) (principal)

== ENCOUNTER → 2017-05-17 | Outpatient (CLI) | payer OTHER ==
--- NOTE | 2017-05-21 10:05 | SLEEPCENT ---
DATE OF PROCEDURE: 05/17/2017 ORDERED BY: Gisselle Burnett. Nocturnal polysomnography was performed for the titration of pressure therapy in this patient with severe obstructive sleep apnea syndrome, apnea hypopnea index of 48. For testing, the patient was fit with a [employer] full face mask of medium size, 4 cm of water pressure were applied to the circuit and the lights were extinguished. 8 hours and 18 minutes of data were reviewed. There were 462 minutes of sleep identified. Sleep latency was mildly prolonged at 21 minutes. REM latency more so prolonged at 106 minutes. Sleep architecture once established was good. There were 4 rapid eye movement (REM) periods, the last of which was almost an hour in length. Overall sleep efficiency was 94%. The patient's EKG showed a sinus rhythm with an average heart rate of 74 beats per minute. EEG showed reasonably normal wave forms for wake and sleep. Respiratory events were best palliated with CPAP at a pressure of +14 with which the patient slept through REM without respiratory event or oxygen desaturation in the supine position. Remaining measures of sleep physiology were normal. IMPRESSION: Severe obstructive sleep apnea syndrome (G47.33). RECOMMENDATION: Nightly use of pressure therapy 14 cm of water.
== END ==
LOC: M SLEEP 19:52
PROVIDERS: ATTEND Nurse Practitioner Adult Health
DX: G47.33 Obstructive sleep apnea (adult) (pediatric) (principal)

== ENCOUNTER 2017-08-30 12:14 | Emergency (ER) | payer OTHER ==
[~2017-08-30] VITALS: Ht 170.2 cm; Wt 125.0 kg
[2017-08-30 12:15] VITALS: BP 148/79
[2017-08-30] MEDS ORDERED: TRAZ1TAB14 (12:24)
[2017-08-30] MEDS ORDERED: TOPR100T (12:24)
[2017-08-30] MEDS ORDERED: ESCI20TA (12:24)
[2017-08-30] MEDS ORDERED: VALS1TAB47 (12:24)
[2017-08-30] MEDS ORDERED: PRAZ2CAP (12:24)
[2017-08-30] MEDS ORDERED: PRAZ5CAP (12:24)
[2017-08-30] MEDS ORDERED: IBUP80TA PO (13:49)
[2017-08-30] MEDS ORDERED: IBUPROFEN 800 MG TAB PO ONE (14:00)
== END 2017-08-30 13:54 | disposition home or self-care (01) ==
LOC: M ED 12:14
DX: G56.32 Lesion of radial nerve, left upper limb (principal); I10 Essential (primary) hypertension; F43.10 Post-traumatic stress disorder, unspecified; D55.0 Anemia due to glucose-6-phosphate dehydrogenase [G6PD] deficiency; Z79.899 Other long term (current) drug therapy; Z88.1 Allergy status to other antibiotic agents; Z88.2 Allergy status to sulfonamides; Z88.8 Allergy status to other drugs, medicaments and biological substances

== ENCOUNTER 2017-10-07 23:15 | Emergency (ER) | payer OTHER | END 2017-10-08 01:30 | disposition home or self-care (01) | LOC: M ED 23:15 | DX: L03.90 Cellulitis, unspecified (principal); I10 Essential (primary) hypertension; K21.9 Gastro-esophageal reflux disease without esophagitis; F43.10 Post-traumatic stress disorder, unspecified; Z87.820 Personal history of traumatic brain injury; Z79.899 Other long term (current) drug therapy; Z88.2 Allergy status to sulfonamides; Z88.8 Allergy status to other drugs, medicaments and biological substances | CPT/HCPCS: 99282 ==

== ENCOUNTER 2018-04-24 11:04 | Day surgery (SDC) | payer OTHER ==
[~2018-04-24 11:04] MED LIST: LR 1,000 ML IV
[2018-04-24] MEDS ORDERED: METOPROLOL SUCC *XL* 25MG TAB (TopROL *XL*) As Ordered (12:06)
[2018-04-24] MEDS ORDERED: METOPROLOL SUCC *XL* 25MG TAB (TopROL *XL*) PO (12:30)
[2018-04-24] MEDS ORDERED: BUPIVACAINE/EPIN 0.5% 30 ML VIAL As Ordered (12:35)
[2018-04-24] MEDS ORDERED: LIDOCAINE W/EPINEPHRINE 1% 20ML VIAL As Ordered (12:35)
[2018-04-24] MEDS ORDERED: PROPOFOL 200 MG/20 ML VIAL As Ordered (12:47)
[2018-04-24] MEDS ORDERED: LIDOCAINE 2% INJ 100 MG/5 ML SDV (FOR ANES.) As Ordered (12:47)
[2018-04-24] MEDS ORDERED: dexameTHASONE 4 MG/ML 1ML VIAL (J1100) As Ordered ×2 (12:49)
[2018-04-24] MEDS ORDERED: ONDANSETRON 4MG/2ML VIAL (J2405) As Ordered (12:49)
[2018-04-24] MEDS ORDERED: MIDAZOLAM INJ 2 MG/2 ML VIAL (J2250) As Ordered (12:53)
[2018-04-24] MEDS ORDERED: fentaNYL 100 MCG/2 ML INJECTION (J3010) As Ordered (12:53)
[2018-04-24] MEDS ORDERED: SUCCINYLCHOLINE 100 MG/5 ML SYRINGE (J0330) As Ordered (13:14)
[2018-04-24] MEDS ORDERED: LR 1,000 ML IV ×2 (14:30)
[2018-04-24] MEDS ORDERED: ONDANSETRON 4MG/2ML VIAL (J2405) IV (14:30)
[2018-04-24] MEDS ORDERED: fentaNYL 100 MCG/2 ML INJECTION (J3010) IV (14:30)
[2018-04-24] MEDS ORDERED: HYDROMORPHONE HCL 0.5 MG/ 0.5 ML SYRINGE (J1170 PER 1) IV (14:30)
[2018-04-24] MEDS: PERCOCET 5MG/325MG TAB PO ×2 (14:38→15:27)
[2018-04-24] MEDS ORDERED: NORCO, ANEXSIA 5/325MG TABLET (HYDROcodone/ACETAMINOPHEN) PO (14:45)
== END 2018-04-24 15:35 | disposition home or self-care (01) ==
LOC: M SDC 11:04
DX: J35.01 Chronic tonsillitis (principal); G47.30 Sleep apnea, unspecified; Z79.899 Other long term (current) drug therapy; Z79.82 Long term (current) use of aspirin
CPT/HCPCS: 42826

== ENCOUNTER 2018-04-25 18:08 | Emergency (ER) | payer OTHER ==
[2018-04-25 22:56] LABS: BASO % 0.3 % (0.0-1.0); EOS # 0.1 10^3/uL (0.0-0.50); EOS % 0.8 % (0.0-3.0); HEMOGLOBIN 13.6 g/dl (13.5-17.5); IMMATURE GRANULOCYTE % 0.3 % (0-3.0); LYMPH # 3.7 10^3/uL (1.5-4.5); LYMPH % 32.1 % (24.0-44.0); MEAN CORPUSCULAR HEMOGLOBIN 28.5 pg (27.0-33.0); MEAN CORPUSCULAR HGB CONC 31.6 g/dl (32.0-36.5); MEAN CORPUSCULAR VOLUME 90.1 fl (80.0-96.0); MONO # 1.1 10^3/uL (0.0-0.8); MONO % 9.4 % (0.0-5.0); NEUTROPHILS # 6.5 10^3/uL (1.8-7.7); NEUTROPHILS % 57.1 % (36.0-66.0); PLATELET COUNT, AUTOMATED 275 10^3/uL (150-450); RED BLOOD COUNT 4.77 10^6/uL (4.30-6.10); RED CELL DISTRIBUTION WIDTH 12.2 % (11.5-14.5); WHITE BLOOD COUNT 11.4 10^3/uL (4.0-10.0)
[2018-04-25] MEDS: NS 1,000 ML IV (22:58)
[2018-04-25] MEDS: MORPHINE 4 MG/ML 1ML VIAL/SYRINGE (J2270) IV (22:58)
[2018-04-25 23:19] LABS: ANION GAP 5 MEQ/L (8-16); BLOOD UREA NITROGEN 11 MG/DL (7-18); CALCIUM LEVEL 8.8 MG/DL (8.5-10.1); CARBON DIOXIDE LEVEL 32 MEQ/L (21-32); CHLORIDE LEVEL 102 MEQ/L (98-107); CREATININE FOR GFR 1.17 MG/DL (0.70-1.30); GLOMERULAR FILTRATION RATE > 60.0 (>60); GLUCOSE, FASTING 115 MG/DL (70-100); POTASSIUM SERUM 3.7 MEQ/L (3.5-5.1); SODIUM LEVEL 139 MEQ/L (136-145)
[2018-04-25] MEDS: KETOROLAC 30 MG/ML VIAL (J1885) IV (23:45)
== END 2018-04-26 00:26 | disposition home or self-care (01) ==
LOC: M ED 04-26 00:26
DX: G89.18 Other acute postprocedural pain (principal); E86.0 Dehydration; M79.1 Myalgia; I10 Essential (primary) hypertension; Z87.820 Personal history of traumatic brain injury; G47.30 Sleep apnea, unspecified; F32.9 Major depressive disorder, single episode, unspecified; F43.10 Post-traumatic stress disorder, unspecified; Z88.8 Allergy status to other drugs, medicaments and biological substances; Z88.2 Allergy status to sulfonamides; Z79.899 Other long term (current) drug therapy
CPT/HCPCS: J2270

== ENCOUNTER 2018-04-30 23:58 | Emergency (ER) | payer OTHER | END 2018-05-01 06:30 | disposition home or self-care (01) | LOC: M ED 23:58 | DX: J95.830 Postprocedural hemorrhage of a respiratory system organ or structure following a respiratory system procedure (principal); Z79.899 Other long term (current) drug therapy; Z88.1 Allergy status to other antibiotic agents; Z88.2 Allergy status to sulfonamides; Z88.8 Allergy status to other drugs, medicaments and biological substances | CPT/HCPCS: 99283 ==

== ENCOUNTER 2018-10-01 09:08 | Emergency (ER) | payer OTHER ==
[~2018-10-01] VITALS: Ht 172.7 cm; Wt 100.0 kg
[~2018-10-01 09:08] MED LIST changes: +ACET160S5 PO; +AUGM875T28 PO; +ESCI20TA; +FISH100049 PO; +HYDR1SOL PO; +IBUP80TA PO; +IRON50TA PO; +LEXA5TAB13 PO; -LR 1,000 ML IV; +PRAZ2CAP PO; +PRAZ5CAP PO; +TOPR100T13 PO; +TRAZ1TAB14 PO; +VALS1TAB47 PO; +ZOFR4TAB14 PO
[2018-10-01] MEDS ORDERED: NS 1,000 ML IV ONE (10:00)
[2018-10-01] MEDS ORDERED: KETOROLAC 30 MG/ML VIAL (J1885) IV ONE (10:00)
[2018-10-01] MEDS ORDERED: METOCLOPRAMIDE INJ 10MG/2ML VIAL (J2765) IV ONE (10:00)
[2018-10-01] MEDS: READI-CAT 2 PO SCH ×2 (10:45→10:51)
[2018-10-01 10:46] LABS: BASO # 0.1 10^3/uL (0.0-0.2); BASO % 0.8 % (0.0-1.0); EOS # 0.2 10^3/uL (0.0-0.50); EOS % 3.3 % (0.0-3.0); HEMOGLOBIN 13.3 g/dl (13.5-17.5); LYMPH % 31.5 % (24.0-44.0); MEAN CORPUSCULAR HEMOGLOBIN 29.9 pg (27.0-33.0); MEAN CORPUSCULAR HGB CONC 34.1 g/dl (32.0-36.5); MEAN CORPUSCULAR VOLUME 87.6 fl (80.0-96.0); MONO # 0.4 10^3/uL (0.0-0.8); MONO % 5.9 % (0.0-5.0); NEUTROPHILS # 3.7 10^3/uL (1.8-7.7); NEUTROPHILS % 57.9 % (36.0-66.0); PLATELET COUNT, AUTOMATED 281 10^3/uL (150-450); RED BLOOD COUNT 4.45 10^6/uL (4.30-6.10); WHITE BLOOD COUNT 6.3 10^3/uL (4.0-10.0)
[2018-10-01 11:00] LABS: ALBUMIN 3.8 GM/DL (3.2-5.2); ALT/SGPT 30 U/L (12-78); AMYLASE 32 U/L (25-115); BILIRUBIN,TOTAL 0.5 MG/DL (0.2-1.0); BLOOD UREA NITROGEN 10 MG/DL (7-18); C REACTIVE PROTEIN QUANTITATIV 0.51 MG/DL (0.00-0.30); CALCIUM LEVEL 8.4 MG/DL (8.5-10.1); CARBON DIOXIDE LEVEL 29 MEQ/L (21-32); CHLORIDE LEVEL 105 MEQ/L (98-107); CREATININE FOR GFR 1.03 MG/DL (0.70-1.30); GLOMERULAR FILTRATION RATE > 60.0 (>60); GLUCOSE, FASTING 148 MG/DL (70-100); LIPASE 112 U/L (73-393); POTASSIUM SERUM 4.4 MEQ/L (3.5-5.1); SODIUM LEVEL 138 MEQ/L (136-145); TOTAL PROTEIN 7.7 GM/DL (6.4-8.2)
[2018-10-01 11:34] LABS: APPEARANCE, URINE CLEAR (CLEAR); BACTERIA, URINE AUTO NEGATIVE (NEGATIVE); BILIRUBIN, URINE AUTO NEGATIVE (NEGATIVE); BLOOD, URINE BLOOD NEGATIVE (NEGATIVE); COLOR, URINE YELLOW (YELLOW); GLUCOSE, URINE (UA) AUTO NEGATIVE (NEGATIVE); KETONE, URINE AUTO NEGATIVE (NEGATIVE); LEUKOCYTE ESTERASE, URINE AUTO NEGATIVE (NEGATIVE); MUCUS, URINE SMALL (NEGATIVE); NITRITE, URINE AUTO NEGATIVE (NEGATIVE); PROTEIN, URINE AUTO NEGATIVE (NEGATIVE); RBC, URINE AUTO 2 /HPF (0-3); SPECIFIC GRAVITY URINE AUTO 1.019 (1.002-1.035); SQUAMOUS EPITHELIAL CELL UR AU 0 /HPF (0-6); UROBILINOGEN, URINE AUTO 0.2 mg/dL (0.0-2.0); WBC, URINE AUTO 5 /HPF (0-3)
[2018-10-01] MEDS ORDERED: ISOVUE-370 76% 100ML VIAL (Q9967) As Ordered ONE (12:16)
--- NOTE | 2018-10-01 12:46 | REP ---
CT abdomen and pelvis with IV and oral contrast: History: Diffuse abdomen pain. Nausea and vomiting. No comparison study. CT contrast dose: 100 ml of intravenous Isovue 370. 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 The lung bases are clear on axial CT images. There is mild diffuse fatty infiltration of the liver. No focal liver lesion is seen. Liver is not felt to be enlarged. Spleen is normal in size homogeneous in texture. No adrenal lesion is seen. The pancreas is unremarkable. No abnormalities noted in the gallbladder. The kidneys enhance symmetrically and are morphologically intact. No hydronephrosis or intrarenal calculus is seen. No retroperitoneal mass or adenopathy is observed. Scattered normal-sized small bowel mesenteric lymph nodes are seen. Normal appendix is noted retrocecal in position. The appearance of the sigmoid colon suggests diverticulosis. No pericolonic inflammatory changes are seen but there may be mild mural thickening in the sigmoid colon question early diverticulitis. This should be correlated clinically with signs and symptoms. No free air or abscess is seen. No abdominal wall defect is observed. Urinary bladder, seminal vesicles and prostate are unremarkable. Bone window settings show bilateral L5 spondylolysis without spondylolisthesis. Impression: Early diverticulosis changes in the sigmoid colon question mild mural thickening. No pericolonic inflammation, abscess, or free air. Normal appendix. Scattered normal-sized mesenteric lymph nodes. Mild fatty infiltration of the liver. Bilateral L5 spondylolysis without spondylolisthesis. Electronically Signed by Peter Dorado MD 10/01/2018 12:37 P
[2018-10-01] MEDS ORDERED: AUGM875T28 PO (13:29)
[2018-10-01] MEDS ORDERED: KETO10TAB PO (13:29)
[2018-10-01] MEDS ORDERED: REGL10TA6 PO (13:29)
[2018-10-01 13:45] VITALS: BP 150/98
== END 2018-10-01 13:46 | disposition home or self-care (01) ==
LOC: M ED 09:08
DX: K57.90 Diverticulosis of intestine, part unspecified, without perforation or abscess without bleeding (principal); R11.2 Nausea with vomiting, unspecified; R19.7 Diarrhea, unspecified; R10.9 Unspecified abdominal pain
CPT/HCPCS: 74177; 80053; 81001; 82150; 83690; 85025; 86140; 96374; 96375; 99284; J1885; J2765; Q9967

== ENCOUNTER 2018-11-16 20:28 | Emergency (ER) | payer OTHER ==
[~2018-11-16] VITALS: Ht 172.7 cm; Wt 95.5 kg
[~2018-11-16 20:28] MED LIST changes: +KETO10TAB PO; +REGL10TA6 PO
[2018-11-16 20:29] VITALS: BP 174/104
[2018-11-16] MEDS ORDERED: METO10TA2 (20:36)
--- NOTE | 2018-11-17 04:05 | REP ---
Clinical: Right arm pain. Technique: AP and lateral views of the right humerus. Findings: No acute fracture or dislocation. Skeletal structures, joint spaces, and surrounding soft tissues are normal. No subcutaneous emphysema or radiodense foreign body. Impression: Normal right humerus radiographs. Electronically Signed by Jacob Mascorro MD 11/17/2018 03:58 A
== END 2018-11-16 22:46 | disposition home or self-care (01) ==
LOC: M ED 20:28
DX: S46.211A Strain of muscle, fascia and tendon of other parts of biceps, right arm, initial encounter (principal); X50.0XXA Overexertion from strenuous movement or load, initial encounter; Y92.410 Unspecified street and highway as the place of occurrence of the external cause; I10 Essential (primary) hypertension; F43.10 Post-traumatic stress disorder, unspecified; Z88.2 Allergy status to sulfonamides; Z88.8 Allergy status to other drugs, medicaments and biological substances; Z79.899 Other long term (current) drug therapy

== ENCOUNTER 2019-09-08 18:23 | Emergency (ER) | payer OTHER ==
[~2019-09-08] VITALS: Ht 170.2 cm; Wt 127.3 kg
[2019-09-08 18:23] VITALS: BP 159/95
[~2019-09-08 18:23] MED LIST changes: -ACET160S5 PO; +METO10TA2; +TGTSUS3 PO; +TOPR100T PO; -TOPR100T13 PO; -VALS1TAB47 PO; +VALS1TAB67 PO
[2019-09-08] MEDS ORDERED: GEMF600T5 PO (18:31)
[2019-09-08] MEDS ORDERED: LISI-538 PO (18:31)
[2019-09-08] MEDS ORDERED: METF10004 PO (18:31)
[2019-09-08] MEDS ORDERED: IBUPROFEN 800 MG TAB PO ONE (18:45)
--- NOTE | 2019-09-08 19:10 | REP ---
Clinical: Right lower lobe crackles . Comparison: 10/30/2016 . Technique: PA and lateral. Findings: The mediastinum and cardiac silhouette are normal. The lung diez are clear and without acute consolidation, effusion, or pneumothorax. The skeletal structures are intact and normal. Impression: 1. No acute cardiopulmonary process. Electronically Signed by Jacob Mascorro MD 09/08/2019 07:02 P
[2019-09-08 19:18] LABS: BASO # 0.1 10^3/uL (0.0-0.2); BASO % 1.2 % (0.0-1.0); EOS # 0.2 10^3/uL (0.0-0.5); EOS % 3.5 % (0.0-3.0); HEMATOCRIT 39.2 % (42.0-52.0); HEMOGLOBIN 12.8 g/dl (13.5-17.5); LYMPH # 1.6 10^3/uL (1.5-5.0); LYMPH % 23.7 % (24.0-44.0); MEAN CORPUSCULAR HEMOGLOBIN 29.1 pg (27.0-33.0); MEAN CORPUSCULAR HGB CONC 32.7 g/dl (32.0-36.5); MEAN CORPUSCULAR VOLUME 89.1 fl (80.0-96.0); MONO # 0.9 10^3/uL (0.0-0.8); MONO % 13.3 % (0.0-5.0); NEUTROPHILS # 3.9 10^3/uL (1.5-8.5); NEUTROPHILS % 57.9 % (36.0-66.0); PLATELET COUNT, AUTOMATED 226 10^3/uL (150-450); WHITE BLOOD COUNT 6.8 10^3/uL (4.0-10.0)
[2019-09-08 19:31] LABS: BLOOD UREA NITROGEN 9 MG/DL (7-18); CALCIUM LEVEL 9.2 MG/DL (8.5-10.1); CARBON DIOXIDE LEVEL 26 MEQ/L (21-32); CHLORIDE LEVEL 105 MEQ/L (98-107); CREATININE FOR GFR 1.25 MG/DL (0.70-1.30); GLOMERULAR FILTRATION RATE > 60.0 (>60); GLUCOSE, FASTING 227 MG/DL (70-100); POTASSIUM SERUM 3.9 MEQ/L (3.5-5.1); SODIUM LEVEL 140 MEQ/L (136-145)
[2019-09-08] MEDS ORDERED: PROV108A INH (19:40)
[2019-09-08] MEDS ORDERED: TESS100C PO (19:40)
[2019-09-08] MEDS ORDERED: BENZONATATE 100 MG CAP PO ONE (19:45)
== END 2019-09-08 19:51 | disposition home or self-care (01) ==
LOC: M ED 18:23
DX: J06.9 Acute upper respiratory infection, unspecified (principal); E11.9 Type 2 diabetes mellitus without complications; I10 Essential (primary) hypertension; D55.0 Anemia due to glucose-6-phosphate dehydrogenase [G6PD] deficiency; G47.30 Sleep apnea, unspecified; Z88.2 Allergy status to sulfonamides; Z88.9 Allergy status to unspecified drugs, medicaments and biological substances; Z79.51 Long term (current) use of inhaled steroids; Z79.84 Long term (current) use of oral hypoglycemic drugs; Z79.899 Other long term (current) drug therapy

== ENCOUNTER 2019-11-02 22:41 | Emergency (ER) | payer OTHER ==
[~2019-11-02] VITALS: Ht 170.2 cm; Wt 122.7 kg
[~2019-11-02 22:41] MED LIST changes: +GEMF600T5 PO; +LISI-538 PO; +METF10004 PO; +PROV108A INH; +TESS100C PO
[2019-11-02 22:44] VITALS: BP 182/90
[2019-11-02] MEDS ORDERED: BUSP5TA PO (22:49)
[2019-11-02] MEDS ORDERED: PRAZ1CAP PO (22:49)
[2019-11-02] MEDS ORDERED: ZOLO25TA PO (22:49)
[2019-11-02] MEDS ORDERED: ACETAMINOPHEN 325 MG TAB PO ONE (23:00)
[2019-11-02 23:41] LABS: INFLUENZA A AMPLIFICATION NEGATIVE (NEGATIVE); INFLUENZA B AMPLIFICATION POSITIVE (NEGATIVE)
[2019-11-03] MEDS ORDERED: OSEL75CA PO (03:22)
[2019-11-03] MEDS ORDERED: OSELTAMIVIR PHOSPHATE 75 MG CAP (TAMIFLU) PO ONE (03:30)
[2019-11-03] MEDS ORDERED: IBUPROFEN 800 MG TAB PO ONE (03:30)
== END 2019-11-03 03:31 | disposition home or self-care (01) ==
LOC: M ED 22:41
DX: J10.1 Influenza due to other identified influenza virus with other respiratory manifestations (principal); Z88.2 Allergy status to sulfonamides; Z79.51 Long term (current) use of inhaled steroids; Z79.84 Long term (current) use of oral hypoglycemic drugs; Z79.899 Other long term (current) drug therapy

== ENCOUNTER 2024-11-14 20:30 | Emergency (ER) | payer OTHER ==
[~2024-11-14] VITALS: Ht 172.7 cm; Wt 113.2 kg
[~2024-11-14 20:30] MED LIST changes: +ACET-1439 PO; +ALBU6.7H6 INH; +BUSP5TA PO; -ESCI20TA; +ESCI20TA16; -LISI-538 PO; +LISI20TA33 PO; +OSEL75CA PO; +PRAZ1CAP PO; -PROV108A INH; -TGTSUS3 PO; +ZOLO25TA PO
[2024-11-14 20:40] VITALS: TEMP 97.1
[2024-11-14 21:35] LABS: BASO % 0.2 % (0.0-1.0); EOS # 0.2 10^3/uL (0.0-0.5); EOS % 1.3 % (0.0-3.0); HEMATOCRIT 46.2 % (42.0-52.0); LYMPH # 1.8 10^3/uL (1.5-5.0); LYMPH % 14.1 % (24.0-44.0); MEAN CORPUSCULAR HEMOGLOBIN 30.4 pg (27.0-33.0); MEAN CORPUSCULAR VOLUME 82.5 fl (80.0-96.0); MONO # 0.6 10^3/uL (0.0-0.8); MONO % 4.7 % (2.0-8.0); NEUTROPHILS # 9.9 10^3/uL (1.5-8.5); NEUTROPHILS % 79.2 % (36.0-66.0); PLATELET COUNT, AUTOMATED 266 10^3/uL (150-450); WHITE BLOOD COUNT 12.4 10^3/uL (4.0-10.0)
[2024-11-14 21:36] LABS: MEAN CORPUSCULAR HGB CONC 36.8 g/dl (32.0-36.5)
[2024-11-14 22:01] LABS: LIPASE 53 U/L (12-53)
[2024-11-14 22:08] LABS: ALBUMIN 4.6 G/DL (3.2-5.2); ALKALINE PHOSPHATASE 80 U/L (40-129); ALT/SGPT 15 U/L (7.0-40); AST/SGOT 21 U/L (<34); BILIRUBIN,DIRECT < 0.1 MG/DL (<0.4); BILIRUBIN,TOTAL 0.4 MG/DL (0.3-1.2); BLOOD UREA NITROGEN 15 MG/DL (9-23); CALCIUM LEVEL 9.2 MG/DL (8.5-10.1); CARBON DIOXIDE LEVEL 23 MMOL/L (20-31); CHLORIDE LEVEL 100 MMOL/L (98-107); CREATININE FOR GFR 0.85 MG/DL (0.70-1.30); GLOMERULAR FILTRATION RATE > 60.0 (>60); GLUCOSE, FASTING 378 MG/DL (60-100); POTASSIUM SERUM 3.8 MMOL/L (3.5-5.1); SODIUM LEVEL 135 MMOL/L (136-145); TOTAL PROTEIN 7.9 G/DL (5.7-8.2)
[2024-11-14] MEDS ORDERED: ISOVUE-370 76% 100ML VIAL As Ordered ONE (22:50)
[2024-11-14] MEDS: ONDANSETRON 4MG 2ML VIAL IV ONE (23:34)
[2024-11-14] MEDS: KETOROLAC 30 MG/ML 1ML VIAL IV ONE (23:34)
[2024-11-14 23:45] VITALS: BP 136/76; O2SAT 96
[2024-11-15 00:25] LABS: KETONE, URINE AUTO RFX 1+ mg/dL (NEGATIVE); LEUKOCYTE ESTERASE UR AUTO RFX NEGATIVE (NEGATIVE); NITRITE, URINE AUTO RFX NEGATIVE (NEGATIVE); RBC, URINE AUTO RFX 1 /HPF (0-3); SQUAM EPITHELIAL CELL UR AURFX 0 /HPF (0-6); WBC, URINE AUTO RFX 0 /HPF (0-3)
[2024-11-15] MEDS ORDERED: ONDA-282 PO (00:32)
== END 2024-11-15 00:48 | disposition home or self-care (01) ==
LOC: M ED 20:30
DX: K52.9 Noninfective gastroenteritis and colitis, unspecified (principal); R00.0 Tachycardia, unspecified; E11.9 Type 2 diabetes mellitus without complications; F43.10 Post-traumatic stress disorder, unspecified; F10.10 Alcohol abuse, uncomplicated; Z79.84 Long term (current) use of oral hypoglycemic drugs; Z87.820 Personal history of traumatic brain injury; Z88.2 Allergy status to sulfonamides; Z88.8 Allergy status to other drugs, medicaments and biological substances; Z79.52 Long term (current) use of systemic steroids; Z79.83 Long term (current) use of bisphosphonates; Z79.899 Other long term (current) drug therapy
CPT/HCPCS: 74177; 80048; 80076; 81001; 83605; 83690; 85025; 87880; 93005; 93041; 96374; 99284; J1885; J2405; Q9967